=== PATIENT | female | born 1975 | race Caucasian/White ===

== ENCOUNTER 2016-03-20 23:27 | Emergency (ER) | payer OTHER ==
[2016-03-20 23:38] VITALS: BP 112/76; PULSE 85; TEMP 99; BMI 24.1
--- NOTE | 2016-03-21 01:19 | PDOC ---
[id number] ABCESS UNDER RIGHT ARM Time Seen by Provider: 03/20/16 23:36 - History of Present Illness Initial Comments: this 40-year-old woman with no significant past medical history presents with several days of progressive edematous and painful swellings of her right axilla. Patient was seen in urgent care earlier today and was started on Bactrim /Keflex. Patient was given option for incision and drainage but opted to defer this. Over the subsequent afternoon and evening, pain became worse and patient presented here. no recent history of fever/chills. The patient has no previous history of skin abscesses or cellulitis. No history of resistant organism colonization or infection Patient relates that lesions developed during recent trip to family in [facility] ; patient swam in family pool but had no other exposure to immersion and other water. Past History - Past Medical History Allergies/Adverse Reactions: Allergies Allergy/AdvReac Type Severity Reaction Status Date / Time clomiphene citrate Allergy Verified 03/20/16 23:29 [From Clomid] Home Medications: Ambulatory Orders Cephalexin [Keflex] 500 mg PO TID 03/20/16 Levothyroxine [Synthroid -] 100 mcg PO DAILY 03/20/16 Sulfamethoxazole/Trimethoprim [Bactrim Ds -] 1 tab PO BID 03/20/16 Thyroid Disease: Yes - Psycho/Social/Smoking Cessation Hx Anxiety: No Suicidal Ideation: No Smoking History: Never smoked Have you smoked in the past 12 months: No Information on smoking cessation initiated: No Hx Alcohol Use: No Drug/Substance Use Hx: No Substance Use Type: None *Physical Exam - Vital Signs Last Vital Signs Temp Pulse Resp BP Pulse Ox 99 F 85 16 112/76 99 03/20/16 23:32 03/20/16 23:32 03/20/16 23:32 03/20/16 23:32 03/20/16 23:32 - Physical Exam Comments: adult female, alert and oriented 3, in mild distress secondary to right axillary pain Vital signs as noted HEAD: No contusions, abrasions or lacerations of the scalp; no facial ecchymosis , deformities or tenderness EYES: Pupils equal, round and reactive to light, extraocular movements intact, sclera anicteric, conjunctiva clear PHARYNX: No erythema, exudate or edema; mucous membranes moist NECK: Supple, nontender, no masses or bruits LUNGS: Clear to auscultation bilaterally CHEST wall: 3 cm by 2 cm firm, erythematous, very tender mass lower right axilla 1 cm x 2 cm fluctuant, faintly erythematous, very tender mass mid right axilla No lymphangitic streaking; no discharge No other significant lesions evident CARDIAC: S1, S2 normal; no extra sounds, rubs or murmurs heard ABDOMEN:Normoactive bowel sounds, nontender, no masses, no organomegaly EXTREMITIES: Normal range of motion, no edema,deformity or tenderness NEUROLOGICAL: Cranial nerves II through XII grossly intact. Normal speech, normal gait.moving all 4 extremities equally, Sensation intact in all extremities. PSYCH: Normal mood, normal affect. SKIN: Warm, Dry, normal turgor, no rashes or lesions noted. Procedures - Incision and Drainage I&D Site: Right: Axilla (2 separate abscesses drained) Betadine cleansed: No (Hibiclens/ethanol) Anesthesia: 1% Lidocaine Volume(ml): 4 Blade Size: 11 Attempts: 1 Iodinated Packin in Complications: none Dressing: Yes (dry sterile gauze taped to wound) Progress: mid axillary and lower axilla abscesses prepped using Hibiclens/ethanol solution. 4 mL of 1% lidocaine used for local anesthetic (2 mL infiltrated into each lesion) #11 blade used to make incisions: Half centimeter in mid axillary abscess; 1 cm in lower axillary abscess Copious purulent drainage (sampled for culture and sensitivity)obtained from each abscess Each abscess cavity irrigated 30 mL of sterile normal saline; iodoform gauze packing placed patient tolerated procedure well Progress Note - Progress Note Progress Note: Patient will continue Bactrim/Keflex as prescribed by urgent care while awaiting wound culture results. *DC/Admit/Observation/Transfer Diagnosis at time of Disposition: Abscess of right axilla - Discharge Dispostion Disposition: HOME Condition at time of disposition: Stable - Patient Instructions Printed Discharge Instructions: DI for Skin Abscess Additional Instructions: keep dressing in place take packing out tomorrow night,then wash area as usual cover area with gauze as needed continue antibiotics as prescribed return if area becomes more swollen/red/painful see your doctor within 1 week as discussed
== END 2016-03-21 01:25 | disposition home or self-care (01) ==
LOC: FER 23:27
PROC: 0H9BXZZ Drainage of Right Upper Arm Skin, External Approach (ICD-10-PCS; principal; 2016-03-20)
DX: L02.411 Cutaneous abscess of right axilla (principal)
CPT/HCPCS: 87070; 87186; 87205; 99281-25